=== PATIENT | male | born 1990 | race Caucasian/White ===

== ENCOUNTER 2018-07-26 22:03 | Emergency (ER) | payer OTHER ==
[2018-07-26 22:11] VITALS: RESP 18; O2SAT 100
--- NOTE | 2018-07-27 00:27 | ED PDOC ---
HPI: Chest Pain Time Seen by Provider: 07/26/18 23:02 Chief Complaint (Nursing): Chest Pain Chief Complaint (Provider): Chest Pain History Per: Patient History/Exam Limitations: no limitations Onset/Duration Of Symptoms: Days, Intermittent Episodes Current Symptoms Are (Timing): Gone Now Additional Complaint(s): 28 y/o male with no significant PMHx presents to the ED for evaluation of on and off chest pain, onset one month ago. Patient states pain is not related to exercise or activity and is associated with occasional shortness of breath. Patient reports of no pain at this time while at the ER. Otherwise, patient denies any long plane or car rides, recent surgeries or immobilization, fevers and cough. PMD: No Provider. Past Medical History Reviewed: Historical Data, Nursing Documentation, Vital Signs Vital Signs: Last Vital Signs Temp 98.7 F 07/26/18 22:07 Pulse 74 07/26/18 22:07 Resp 18 07/26/18 22:07 BP 156/90 H 07/26/18 22:07 Pulse Ox 100 07/26/18 22:07 - Medical History PMH: Asthma, HTN - Surgical History Surgical History: No Surg Hx - Family History Family History: States: Unknown Family Hx - Immunization History Hx Tetanus Toxoid Vaccination: No Hx Influenza Vaccination: No Hx Pneumococcal Vaccination: No - Home Medications Home Medications: Ambulatory Orders Medication Instructions Recorded Polymyxin/Trimethoprim Sulfate 1 drop XX Q6H 10 Days bottle 08/13/15 [Polytrim Ophth Soln] - Allergies Allergies/Adverse Reactions: Allergies Allergy/AdvReac Type Severity Reaction Status Date / Time No Known Allergies Allergy Verified 07/26/18 22:07 Review of Systems ROS Statement: Except As Marked, All Systems Reviewed And Found Negative Constitutional: Negative for: Fever Cardiovascular: Positive for: Chest Pain Respiratory: Positive for: Shortness of Breath. Negative for: Cough Physical Exam - Reviewed Nursing Documentation Reviewed: Yes Vital Signs Reviewed: Yes - Physical Exam Appears: Positive for: No Acute Distress Head Exam: Positive for: ATRAUMATIC, NORMOCEPHALIC Skin: Positive for: Normal Color, Warm, Dry Eye Exam: Positive for: Normal appearance, EOMI, PERRL Neck: Positive for: Normal, Painless ROM Cardiovascular/Chest: Positive for: Regular Rate, Rhythm. Negative for: Murmur Respiratory: Positive for: Normal Breath Sounds. Negative for: Respiratory Distress Gastrointestinal/Abdominal: Positive for: Normal Exam, Soft. Negative for: Tenderness Extremity: Positive for: Normal ROM. Negative for: Pedal Edema, Deformity Neurologic/Psych: Positive for: Alert, Oriented. Negative for: Motor/Sensory Deficits - ECG ECG Rhythm: Positive for: Sinus Rhythm. Negative for: ST/T Changes Rate: 69 O2 Sat by Pulse Oximetry: 100 (RA) Pulse Ox Interpretation: Normal (RA) Medical Decision Making Medical Decision Making: Time: 2328 A/P: Very Well appearing 28 y/o male with on and off chest pain. -- Unlikely cardiac -- EKG and CXR are normal -- EKG -- CXR Two Views -- Hydrodiuril 25 mg PO Time: 0 -- Patient is stable for discharge and is advised for follow up with Primary Care Provider. Scribe Attestation: Documented by Morris Humphreys, acting as a scribe for Yan Simmons MD. Provider Scribe Attestation: All medical record entries made by the Scribe were at my direction and personally dictated by me. I have reviewed the chart and agree that the record accurately reflects my personal performance of the history, physical exam, medical decision making, and the department course for this patient. I have also personally directed, reviewed, and agree with the discharge instructions and disposition. Disposition - Clinical Impression Clinical Impression: Chest pain - Disposition Referrals: Jodie Anna MD [Staff Provider] - Disposition: Routine/Home Disposition Time: 00:30 Condition: GOOD Instructions: Chest Pain That Is Not Caused by the Heart (DC) Forms: [employer] [facility] (Sen[place]alese)
[2018-07-27 00:31] VITALS: PULSE 69
[2018-07-27 04:56] VITALS: BP 135/76; TEMP 98
--- NOTE | 2018-07-27 10:29 | RAD ---
Date of service: 07/26/2018 HISTORY: chest pain COMPARISON: No prior. TECHNIQUE: Chest PA and lateral FINDINGS: LUNGS: No active pulmonary disease. PLEURA: No significant pleural effusion identified. No pneumothorax apparent. CARDIOVASCULAR: No aortic atherosclerotic calcification present. Normal cardiac size. No pulmonary vascular congestion. OSSEOUS STRUCTURES: No significant abnormalities. VISUALIZED UPPER ABDOMEN: Normal. OTHER FINDINGS: None. IMPRESSION: No active disease.
--- NOTE | 2018-07-28 14:02 | CARD ---
APPROVED REPORT Date of service: 07/26/2018 EKG Measurement Heart [id number] <Conclusion> Normal sinus rhythm Normal ECG
== END 2018-07-27 00:55 | disposition home or self-care (01) ==
LOC: H.ER 22:03
DX: R07.89 Other chest pain (principal); I10 Essential (primary) hypertension

== ENCOUNTER 2018-09-30 19:36 | Emergency (ER) | payer OTHER ==
[2018-09-30 19:47] VITALS: O2SAT 100
[2018-09-30] MEDS ORDERED: Morphine 4 MG/ML VIAL IM ONE (20:02)
[2018-09-30] MEDS ORDERED: Morphine 4 MG/ML VIAL ONE (20:08)
--- NOTE | 2018-09-30 20:18 | ED PDOC ---
HPI: Back Time Seen by Provider: 09/30/18 19:55 Chief Complaint (Nursing): Back Pain Chief Complaint (Provider): Back Pain History Per: Patient History/Exam Limitations: no limitations Onset/Duration Of Symptoms: Hrs Current Symptoms Are (Timing): Still Present Quality Of Discomfort: "Pain" Exacerbating Factor(s): Movement Additional Complaint(s): 28 year old male presents to the ED for an evaluation of back pain onset today. Patient was horsing around with his daughter and he jumped on the bed, developing back pain. He tried to take Naproxen without any relief. He reports the pain is worse with movement, not touch. Denies cough, shortness of breath or any injury. Past Medical History Reviewed: Historical Data, Nursing Documentation, Vital Signs Vital Signs: Last Vital Signs Temp 98.8 F 09/30/18 19:45 Pulse 92 H 09/30/18 19:45 Resp 16 09/30/18 19:45 BP 160/76 H 09/30/18 19:45 Pulse Ox 100 09/30/18 19:45 - Medical History PMH: Asthma, HTN - Family History Family History: States: Unknown Family Hx - Immunization History Hx Tetanus Toxoid Vaccination: No Hx Influenza Vaccination: No Hx Pneumococcal Vaccination: No - Home Medications Home Medications: Ambulatory Orders Medication Instructions Recorded Polymyxin/Trimethoprim Sulfate 1 drop XX Q6H 10 Days bottle 08/13/15 [Polytrim Ophth Soln] Naproxen 1 tab PO Q12 PRN #14 tab 09/30/18 diaZEpam [Valium] 5 mg PO Q8 PRN #5 tab 09/30/18 - Allergies Allergies/Adverse Reactions: Allergies Allergy/AdvReac Type Severity Reaction Status Date / Time No Known Allergies Allergy Verified 07/26/18 22:07 Review of Systems ROS Statement: Except As Marked, All Systems Reviewed And Found Negative Constitutional: Negative for: Fever, Chills Respiratory: Negative for: Cough Musculoskeletal: Positive for: Back Pain Physical Exam - Reviewed Nursing Documentation Reviewed: Yes Vital Signs Reviewed: Yes - Physical Exam Appears: Positive for: Non-toxic, No Acute Distress Head Exam: Positive for: ATRAUMATIC, NORMAL INSPECTION, NORMOCEPHALIC Skin: Positive for: Normal Color, Warm, Dry. Negative for: Rash Eye Exam: Positive for: Normal appearance Back: Positive for: Normal Inspection (no tenderness elicited) Neurologic/Psych: Positive for: Alert, Oriented (x3). Negative for: Motor/Sensory Deficits - ECG O2 Sat by Pulse Oximetry: 100 (RA) Pulse Ox Interpretation: Normal Medical Decision Making Medical Decision Making: Time: 2001 Initial impression: back pain Initial plan: Morphine 4mg Reevaluation Scribe Attestation: Documented by Yari Penaloza, acting as a scribe for Zack Higgins PA-C. Provider Scribe Attestation: All medical record entries made by the Scribe were at my direction and personally dictated by me. I have reviewed the chart and agree that the record accurately reflects my personal performance of the history, physical exam, medical decision making, and the department course for this patient. I have also personally directed, reviewed, and agree with the discharge instructions and disposition. Disposition - Clinical Impression Clinical Impression: Back strain - Patient ED Disposition Is Patient to be Admitted: No - Disposition Disposition: Routine/Home Disposition Time: 20:19 Condition: FAIR Prescriptions: diaZEpam [Valium] 5 mg PO Q8 PRN #5 tab PRN Reason: Pain, Moderate (4-7) Naproxen 1 tab PO Q12 PRN #14 tab PRN Reason: Pain, Moderate (4-7) Instructions: Low Back Pain in Adults, Muscle Strain (DC) Forms: [employer] ED School/Work Excuse
[2018-09-30 20:57] VITALS: BP 120/78; PULSE 89; RESP 18; TEMP 98
== END 2018-09-30 20:55 | disposition home or self-care (01) ==
LOC: H.ER 19:36
DX: S39.012A Strain of muscle, fascia and tendon of lower back, initial encounter (principal); J45.909 Unspecified asthma, uncomplicated; I10 Essential (primary) hypertension; Y93.83 Activity, rough housing and horseplay
CPT/HCPCS: 96372; 99283; J2270

== ENCOUNTER 2018-10-02 15:54 | Emergency (ER) | payer OTHER ==
[2018-10-02 15:58] VITALS: BMI 63.8
--- NOTE | 2018-10-02 16:11 | ED PDOC ---
HPI: Back Time Seen by Provider: 10/02/18 15:57 Chief Complaint (Nursing): Back Pain Chief Complaint (Provider): back pain, leg weakness History Per: Patient Full Body Front + Back: 1 - pain weakness Quality Of Discomfort: Sharp Severity: Severe Previous Symptoms: None Additional Complaint(s): 28yo male represents to ED after being seen here approx 4 days ago for back injury sustained suddenly when being playful with daughter, jumping to bed. Provided naprosyn and valium without much relief. Now notes some difficulty ambulating due to pain. Denies difficulty urinating, fecal incontinence, fever, rash or drug use. States has some parasthesias to legs equally. Is able to ambulate but with pain. Past Medical History Reviewed: Historical Data, Nursing Documentation, Vital Signs - Medical History PMH: Asthma, HTN - Surgical History Surgical History: No Surg Hx - Family History Family History: States: Unknown Family Hx - Living Arrangements Living Arrangements: With Family - Social History Drugs: Denies - Immunization History Hx Tetanus Toxoid Vaccination: No Hx Influenza Vaccination: No Hx Pneumococcal Vaccination: No - Home Medications Home Medications: Ambulatory Orders Medication Instructions Recorded Polymyxin/Trimethoprim Sulfate 1 drop XX Q6H 10 Days bottle 08/13/15 [Polytrim Ophth Soln] RX: Naproxen 1 tab PO Q12 PRN #14 tab 09/30/18 diaZEpam [Valium] 5 mg PO Q8 PRN #5 tab 09/30/18 Cyclobenzaprine [Cyclobenzaprine 10 mg PO Q8 PRN #9 tab 10/02/18 HCl] Lidocaine 5% [Lidoderm] 1 ea TD DAILY #5 patch 10/02/18 Naproxen [Naprosyn] 500 mg PO BID PRN #14 tablet 10/02/18 RX: traMADol [Ultram] 50 mg PO TID PRN #12 tab 10/02/18 - Allergies Allergies/Adverse Reactions: Allergies Allergy/AdvReac Type Severity Reaction Status Date / Time No Known Allergies Allergy Verified 07/26/18 22:07 Review of Systems Constitutional: Negative for: Fever, Chills, Weakness, Malaise, Weight loss Eyes: Negative for: Vision Change ENT: Negative for: Throat Pain Cardiovascular: Negative for: Chest Pain Respiratory: Negative for: Shortness of Breath Gastrointestinal: Negative for: Abdominal Pain Genitourinary Male: Negative for: Dysuria, Incontinence, Hematuria, Scrotal Pain Musculoskeletal: Positive for: Back Pain, Leg Pain. Negative for: Neck Pain, Shoulder Pain, Arm Pain, Hand Pain, Foot Pain Skin: Negative for: Rash, Lesions, Jaundice Neurological: Positive for: Weakness, Other (paresthesias). Negative for: Altered Mental Status, Headache, Dizziness Physical Exam - Reviewed Nursing Documentation Reviewed: Yes Vital Signs Reviewed: Yes - Physical Exam Appears: Positive for: Well, Non-toxic, No Acute Distress Head Exam: Positive for: ATRAUMATIC, NORMAL INSPECTION, NORMOCEPHALIC Skin: Positive for: Normal Color, Warm, DRY Eye Exam: Positive for: EOMI, Normal appearance, PERRL ENT: Positive for: Normal ENT Inspection Neck: Positive for: Normal, Painless ROM Cardiovascular/Chest: Positive for: Regular Rate, Rhythm Respiratory: Positive for: CNT, Normal Breath Sounds Gastrointestinal/Abdominal: Positive for: Normal Exam, Soft Back: Positive for: Vertebral Tenderness (lumbar sacral), Decreased ROM (lumbar). Negative for: L CVA Tenderness, R CVA Tenderness Extremity: Positive for: Normal ROM. Negative for: Deformity, Swelling Neurologic/Psych: Positive for: Alert, Oriented, Gait (antalgic but otherwise steady to bathroom). Negative for: Motor/Sensory Deficits Medical Decision Making Medical Decision Making: given recurrent ED visits now w pain/paresthesias/ subjective weakness MRI LS spine ordered, r/o cauda equina syndrome Analgesics initiated. MRI report reviewed, rec followup physiatry, may need PT, pain control and or intervention as outpatient Ambulatory with improved gait prior to discharge. Disposition - Clinical Impression Clinical Impression: Low back pain, Bulging disc Counseled Patient/Family Regarding: Studies Performed, Diagnosis, Need For Follo wup, Rx Given - Disposition Referrals: Eduardo Dotson DO [[facility]] - Disposition: Routine/Home Disposition Time: 19:30 Condition: STABLE Additional Instructions: Followup with back specialist as directed, use medications as directed. Caution as pain meds or muscle relaxants may cause drowsiness. Prescriptions: Cyclobenzaprine [Cyclobenzaprine HCl] 10 mg PO Q8 PRN #9 tab PRN Reason: Muscle Spasm Lidocaine 5% [Lidoderm] 1 ea TD DAILY #5 patch Naproxen [Naprosyn] 500 mg PO BID PRN #14 tablet PRN Reason: Pain, Moderate (4-7) RX: traMADol [Ultram] 50 mg PO TID PRN #12 tab PRN Reason: Pain, Moderate (4-7) Instructions: Low Back Pain in Adults Forms: [facility] ([place]), [facility] ED School/Work Excuse
--- NOTE | 2018-10-02 17:34 | MRI ---
Date of service: 10/02/2018 PROCEDURE: MR LUMBAR SPINE WITHOUT CONTRAST HISTORY: low back pain LE weakness/numbness COMPARISON: None available. TECHNIQUE: Multiecho multiplanar sequences were performed through the lumbar spine without the use of intravenous contrast. FINDINGS: There is mild degenerative retrolisthesis of L5 on S1. There is normal lumbar lordosis. There is no acute fracture or spondylolysis. Bone marrow signal is within normal limits. The conus medullaris terminates at a normal level and the nerve roots of cauda equina are normal. There is degeneration of the L5-S1 disc with reduced disc height and loss of T2 signal. The remaining disc heights are maintained. T12-L1: No disc herniation, spinal canal stenosis or neural foraminal narrowing. L1-2: No disc herniation, spinal canal stenosis or neural foraminal narrowing. L2-3: No disc herniation, spinal canal stenosis or neural foraminal narrowing. L3-4: Mild posterior disc bulge without spinal canal stenosis or neural foraminal narrowing. Mild bilateral facet arthropathy. L4-5: Mild posterior disc bulge without spinal canal stenosis or neural foraminal narrowing. Moderate bilateral facet arthropathy L5-S1: Broad-based central disc protrusion indents the ventral thecal sac, abuts the right S1 nerve root with resultant mild central spinal canal stenosis. Moderate bilateral facet arthropathy without neural foraminal narrowing. Spinal canal stenosis or neural foraminal narrowing. OTHER FINDINGS: The paraspinous soft tissues are normal. Imaged portion of the retroperitoneum is within normal limits. IMPRESSION: Moderate degenerative disc disease at L5-S1 with a broad-based central disc protrusion which abuts the right S1 nerve root, indents the ventral thecal sac with resultant mild central spinal canal stenosis. No neural foraminal narrowing.
== END 2018-10-02 18:30 | disposition home or self-care (01) ==
LOC: H.ER 15:54
DX: M54.5 Low back pain (principal); M51.27 Other intervertebral disc displacement, lumbosacral region
CPT/HCPCS: 72148; 96374; 99282; J1885